=== PATIENT | male | born 1970 | race Hispanic/Latino ===

== ENCOUNTER 2017-11-15 07:59 | Emergency (ER) | payer SELFPAY ==
[2017-11-15 08:57] LABS: Basophils % (Auto) 0.4 % (0.0-1.8); Eosinophils % (Auto) 0.4 % (0.0-4.3); Hematocrit 41.3 % (35.5-45.6); Hemoglobin 13.9 gm/dl (11.8-15.2); Lymphocytes # (Auto) 1.1 K/mm3 (1.2-5.4); Mean Corpuscular HGB Conc 34 % (32-34); Mean Corpuscular Hemoglobin 30 pg (28-32); Mean Corpuscular Volume 90 fl (84-94); Monocytes # (Auto) 0.4 K/mm3 (0.0-0.8); Platelet Count 179 K/mm3 (140-440); Red Blood Count 4.61 M/mm3 (3.65-5.03); Red Cell Distribution Width 13.8 % (13.2-15.2)
--- NOTE | 2017-11-15 08:58 | Emergency Department Report ---
ED Syncope HPI - General Chief Complaint: Syncope Stated Complaint: PASSED OUT Time Seen by Provider: 11/15/17 08:57 Source: patient, EMS Exam Limitations: no limitations - History of Present Illness Initial Comments: Patient said that he passed out this morning. When EMS arrived, they noticed that patient has pulse in the 40's and they gave him 0.5mg of Atropine and his pulse increased to the 50's. Timing/Prior Episodes: single episode today Precipitating Factors: Positive: none Loss of Consciousness: brief (seconds) Current Symptoms: back to normal - Related Data Allergies/Adverse Reactions: Allergies No Known Allergies Allergy (Unverified 11/15/17 08:23) ED Review of Systems ROS: Stated complaint: PASSED OUT Other details as noted in HPI Comment: All other systems reviewed and negative Constitutional: denies: chills, fever Eyes: denies: eye pain ENT: denies: ear pain, throat pain Respiratory: denies: cough, orthopnea, shortness of breath Cardiovascular: denies: chest pain, palpitations, dyspnea on exertion, orthopnea Endocrine: no symptoms reported Gastrointestinal: denies: abdominal pain, nausea, vomiting Genitourinary: denies: urgency, dysuria Musculoskeletal: denies: back pain, joint swelling Skin: denies: rash, lesions Neurological: denies: headache, weakness, numbness Psychiatric: denies: anxiety, depression Hematological/Lymphatic: denies: easy bleeding, easy bruising ED Past Medical Hx - Past Medical History Previous Medical History?: Yes Hx Asthma: Yes - Surgical History Past Surgical History?: No - Social History Smoking Status: Current Every Day Smoker Substance Use Type: Alcohol ED Physical Exam - General Limitations: No Limitations General appearance: alert, in no apparent distress - Head Head exam: Present: atraumatic, normocephalic, normal inspection - Eye Eye exam: Present: normal appearance, PERRL, EOMI Pupils: Present: normal accommodation - ENT ENT exam: Present: normal exam, normal orophraynx, mucous membranes moist - Neck Neck exam: Present: normal inspection, full ROM. Absent: tenderness - Respiratory Respiratory exam: Present: normal lung sounds bilaterally. Absent: respiratory distress, wheezes, rales, rhonchi, stridor - Cardiovascular Cardiovascular Exam: Present: normal rhythm, bradycardia, normal heart sounds - GI/Abdominal GI/Abdominal exam: Present: soft, normal bowel sounds. Absent: distended, tenderness, guarding, rebound, rigid - Extremities Exam Extremities exam: Present: normal inspection, full ROM, normal capillary refill. Absent: tenderness - Back Exam Back exam: Present: normal inspection, full ROM. Absent: tenderness, CVA tenderness (R), CVA tenderness (L) - Neurological Exam Neurological exam: Present: alert, oriented X3, CN II-XII intact - Psychiatric Psychiatric exam: Present: normal affect, normal mood - Skin Skin exam: Present: warm, dry, intact, normal color. Absent: rash ED Course Vital Signs 11/15/17 11/15/17 11/15/17 08:23 08:31 08:53 Temperature 97.6 F Pulse Rate 56 L 54 L Respiratory 18 14 16 Rate Blood Pressure 101/59 107/61 O2 Sat by Pulse 97 98 99 Oximetry 11/15/17 11/15/17 11/15/17 09:00 09:30 10:00 Temperature Pulse Rate 51 L 51 L 55 L Respiratory 12 13 14 Rate Blood Pressure 119/68 123/68 138/68 O2 Sat by Pulse 99 Oximetry 11/15/17 10:30 Temperature Pulse Rate 55 L Respiratory 13 Rate Blood Pressure 126/67 O2 Sat by Pulse Oximetry - Reevaluation(s) Reevaluation #1: 11/15/17 16:27 Patient will be admitted by the hospitalist Dr Rockwell for further evaluation and management. ED Medical Decision Making - Lab Data Result diagrams: 11/15/17 08:46 11/15/17 08:46 - Radiology Data Radiology results: report reviewed, image reviewed - Medical Decision Making Syncope. Symptomatic Bradycardia. Critical care attestation.: If time is entered above; I have spent that time in minutes in the direct care of this critically ill patient, excluding procedure time. ED Disposition Clinical Impression: Symptomatic bradycardia Syncope Qualifiers: Syncope type: unspecified Qualified Code(s): R55 - Syncope and collapse Disposition: OP ADMIT IP TO THIS HOSP Is pt being admited?: Yes Does the pt Need Aspirin: No Condition: Stable Instructions: Syncope (ED) Referrals: PRIMARY CARE, [Primary Care Provider] - 3-5 Days Time of Disposition: 10:36
[2017-11-15] MEDS ORDERED: NACL 0.9% 1000 ML 1,000 ML IV ONE (08:59)
[2017-11-15 09:11] LABS: BUN/Creatinine Ratio 14; Blood Urea Nitrogen 13 mg/dL (9-20); Calcium 8.3 mg/dL (8.4-10.2); Hemolysis Index 6
--- NOTE | 2017-11-15 09:24 | XRay Report ---
AP CHEST: HISTORY: Syncope AP view of the chest demonstrates a normal mediastinal and cardiac contour with clear lungs and normal bony and soft tissue structures. IMPRESSION: Unremarkable AP chest.
--- NOTE | 2017-11-15 09:26 | Cat Scan Report ---
CT HEAD WITHOUT CONTRAST: HISTORY: Syncope. TECHNIQUE: Sequential 2.5mm CT images. COMPARISON: none. FINDINGS: Cerebral Parenchyma: Within normal limits. Cerebellum: Within normal limits. Brainstem: Within normal limits. Ventricles: Normal. Sella: Normal. Extra-axial spaces: Normal. Basal Cisterns: Normal. Intracranial Hemorrhage: None. Midline Shift: None. Calvarium: Normal. Sinuses: Normal. Mastoid Air Cells: Normal. Visualized Orbits: Normal. IMPRESSION: Cranial CT scan within normal limits.
[2017-11-15 09:31] LABS: Alanine Aminotransferase 12 units/L (7-56); Albumin 3.8 g/dL (3.9-5)
[2017-11-15 09:39] LABS: Bilirubin,Direct < 0.2 mg/dL (0-0.2)
[2017-11-15 11:00] LABS: Bilirubin,Urine NEG (Negative); Blood,Urine NEG (Negative); Color,Urine Yellow (Yellow); Mucus,Urine FEW /HPF; Protein,Urine <15 mg/dL mg/dL (Negative); RBC,Urine < 1.0 /HPF (0.0-6.0); Urobilinogen,Urine < 2.0 mg/dL (<2.0)
[2017-11-15 11:13] LABS: Amphetamine Screen,Urine PRESUMPTIVE NEGATIVE; Benzodiazepines Screen,Urine PRESUMPTIVE NEGATIVE; Cannabinoid Screen,Urine PRESUMPTIVE NEGATIVE; Cocaine Screen,Urine PRESUMPTIVE NEGATIVE; Methadone Screen,Urine PRESUMPTIVE NEGATIVE; Opiate Screen,Urine PRESUMPTIVE NEGATIVE
[2017-11-15 11:20] VITALS: BP 126/67
== END 2017-11-15 10:50 | disposition admitted as inpatient to this hospital (09) ==
LOC: ED 07:59
DX: R55 Syncope and collapse (principal); R00.1 Bradycardia, unspecified; J45.909 Unspecified asthma, uncomplicated; F17.200 Nicotine dependence, unspecified, uncomplicated; Z79.899 Other long term (current) drug therapy
CPT/HCPCS: 36415; 70450; 71045; 80048; 80074; 80307; 81001; 84484; 85025; 93005; 93010; 96360; 99285; J7030